=== PATIENT | female | born 1960 | race Two or more races ===

== ENCOUNTER 2019-02-09 09:09 | Outpatient (CLI) | payer OTHER ==
[~2019-02-09 09:09] MED LIST: OXYC1TAB9 PO
== END 2019-02-09 09:30 | disposition home or self-care (01) ==
LOC: MAMO-SONO 09:09
DX: S23.41XA Sprain of ribs, initial encounter (principal)

== ENCOUNTER 2024-06-03 07:21 | Outpatient (CLI) | payer OTHER | END 2024-06-03 07:22 | disposition home or self-care (01) | LOC: NUCLEAR 07:21 | PROVIDERS: ATTEND Internal Medicine | DX: I20.9 Angina pectoris, unspecified (principal) ==